=== PATIENT | female | born 1955 | race Caucasian/White ===

== ENCOUNTER 2024-12-04 13:36 | Emergency (ER) | payer MEDICARE, OTHER, SELFPAY ==
[2024-12-04] VITALS (18 sets, daily range): BP systolic 138–220; BP diastolic 78–110; PULSE 62–72; RESP 13–24; TEMP 35.2–35.5; O2SAT 98–100; BMI 30.7; BMI 36.1
[2024-12-04] MEDS: ETOMIDATE 40MG/20ML VIAL 30 MG IV (13:40)
[2024-12-04] MEDS: SUCCINYLCHOLINE 20MG/ML 10 ML MDV 50 MG IV (13:40)
--- NOTE | 2024-12-04 13:40 | CT_ITS ---
PROCEDURE INFORMATION: Exam: CT Head Without Contrast Exam date and time: 12/04/2024 1:55 PM Age: 69 years old Clinical indication: Stroke-like symptoms; Other: Unresponsive TECHNIQUE: Imaging protocol: Computed tomography of the head without contrast. Radiation optimization: All CT scans at this facility use at least one of these dose optimization techniques: automated exposure control; mA and/or kV adjustment per patient size (includes targeted exams where dose is matched to clinical indication); or iterative reconstruction. Other technique: STROKE PROTOCOL was implemented. COMPARISON: No relevant prior studies available. FINDINGS: Brain: Acute hemorrhage in the inferior right frontal lobe measures 6 x 1.8 x 2.8 cm. Focus of hemorrhage in the midline nga measures 1.2 x 0.7 x 1 cm. Hemorrhage is seen throughout the basal cisterns. Right subdural hematoma measures 9 mm. Subdural along the right midline falx measures 0.4 cm. [id number] midline shift measures 10 mm. Findings concerning for impending uncal herniation. Cerebral ventricles: Hemorrhage evident within the inferior 4th ventricle. No hydrocephalus. Paranasal sinuses: Visualized sinuses are unremarkable. No fluid levels. Mastoid air cells: Visualized mastoid air cells are well aerated. Bones: See Soft tissues finding. Soft tissues: Right supraorbital soft tissue edema. No depressed calvarial fracture. IMPRESSION: 1. Parenchymal and extra-axial hemorrhage as detailed above with extensive hemorrhage in the basal cisterns and involvement of the 4th ventricle. 2. 10 mm midline shift. 3. Findings concerning for impending uncal herniation. ASSESSMENT: ASPECTS ([place] Stroke Program Early CT Score) is not applicable. THIS REPORT CONTAINS FINDINGS THAT MAY BE CRITICAL TO PATIENT CARE. The findings were verbally communicated via telephone conference with Nurse Tracy Ellison at 2:13 PM EDT on 12/04/2024. The findings were acknowledged and understood.
[2024-12-04 13:43] LABS: Microscopic, Urine URINE MICROSCOPIC (MICROSCOPIC)
[2024-12-04 13:47] LABS: Appearance,Urine CLEAR (Clear); Bilirubin,Urine Negative (Negative); Blood, Urine TRACE-I (Negative); Color,Urine YELLOW (Yellow); Glucose,Urine (UA) TRACE (Negative); Ketones,Urine Negative (Negative); Leukocyte Esterase,Urine Negative (Negative); Nitrate,Urine Negative (Negative); PH,Urine 6.5 (5.0-8.5); Protein,Urine 2+ (Negative); Specific Gravity, Urine 1.025 (1.005-1.030); Urobilinogen,Urine 0.2 EU/dl (0.2)
--- NOTE | 2024-12-04 13:50 | ED_ITS ---
Discharge Plan Disposition Patient Disposition: Xfer Other Prescriptions Prescriptions: No Action pantoprazole 40 mg tablet,delayed release (DR/EC) 40 mg PO DAILY amlodipine-benazepril 10-40 mg capsule 1 cap PO DAILY albuterol sulfate 2.5 mg /3 mL (0.083 %) solution for nebulization 2.5 mg INHALATION Q6H Qty: 180 5RF buspirone 15 mg tablet 15 mg PO DAILY aspirin [Adult Low Dose Aspirin] 81 mg tablet,delayed release (DR/EC) 81 mg PO DAILY metoprolol succinate 200 mg tablet extended release 24 hr 200 mg PO DAILY Qty: 90 3RF (DME) blood-glucose meter Kit See Rx Instructions .ROUTE .MEDSUPPLY Qty: 1 0RF Rx Instructions: As directed (DME) lancets [Easy Touch Lancets] 28 gauge misc See Rx Instructions .ROUTE .MEDSUPPLY Qty: 100 0RF Rx Instructions: As directed (DME) blood sugar diagnostic [Blood Glucose Test] Strip See Rx Instructions .ROUTE .MEDSUPPLY Qty: 100 0RF Rx Instructions: once daily As directed alcohol swabs [BD Alcohol Swabs] Pads, Medicated 1 pad TOPICAL DAILY Qty: 100 0RF atorvastatin 20 mg tablet 20 mg PO DAILY Qty: 90 0RF Clinical Impressions Clinical Impression: Intracranial hemorrhage, Fall, Head injury Print Language Print Language: Macedonian Discharge ED Provider: Janet Mckeon General Adult HPI General Stated complaint: fall @ 10:00 now unresponsive Time Seen by Provider: 12/04/24 13:44 History of Present Illness HPI narrative: Patient is a 69-year-old female brought into the emergency department by EMS for being found unresponsive. There was an initial call to EMS this morning at 10 AM for a fall EMS responded patient was awake interactive with them and refused transport at that time. Apparently patient got increasingly confused and lost responsiveness about 12:20 PM at which point EMS was called again. She was somewhat responsive to EMS but has become increasingly unresponsive in route. She was hypertensive but otherwise stable. There is evidence that she has a frontal hematoma on the right side and the pupils were unequal prehospital. She is not on any anticoagulants from history or chart review she does take a daily aspirin but that it. Further history unable to be obtained attained. Related Data Home Medications ?Medication ?Instructions ?Recorded ?Confirmed amlodipine 10 mg-benazepril 40 mg 1 cap PO DAILY 02/01/20 02/01/20 capsule pantoprazole 40 mg tablet,delayed 40 mg PO DAILY 02/01/20 02/01/20 release aspirin 81 mg tablet,delayed 81 mg PO DAILY 03/06/20 03/06/20 release (Adult Low Dose Aspirin) buspirone 15 mg tablet 15 mg PO DAILY 03/06/20 Previous Rx's ?Medication ?Instructions ?Recorded albuterol sulfate 2.5 mg/3 mL 2.5 mg (3 mL) inhalation Q6H #180 02/01/20 (0.083 %) solution for nebulization mL alcohol swabs (BD Alcohol Swabs) 1 pad topical DAILY #100 ea 02/01/20 blood sugar diagnostic (Blood #100 ea 02/01/20 Glucose Test strips) blood-glucose meter #1 ea 02/01/20 lancets 28 gauge (Easy Touch #100 ea 02/01/20 Lancets) atorvastatin 20 mg tablet 20 mg PO DAILY #90 tabs 02/04/20 metoprolol succinate 200 mg 200 mg PO DAILY #90 tabs 03/06/20 tablet,extended release 24 hr Allergies Allergy/AdvReac Type Severity Reaction Status Date / Time codeine AdvReac Severe Vomiting Verified 03/06/20 11:42 trimethobenzamide (From AdvReac Severe Vomiting Verified 03/06/20 11:42 Tigan) [facility] Disclaimer: The information contained in this section may have been updated after the patient was seen, as this information can be updated by other users. Social History Smoking Status: Current every day smoker alcohol intake: never substance use type: marijuana current occupational status: retired and disabled Travel in the last 8 weeks: Inside the [place] Other Medical History Have you received the Pneumonia Vaccine: No ROS Obtained: Yes All systems reviewed & no additional complaints except as documented Physical Exam General General appearance: obtunded Head Head exam: other (Right frontal hematoma) Eye Eye exam: Present other (Right pupil 5 mm left 2 both responsive to light) Respiratory Respiratory exam: Present normal lung sounds bilaterally Cardiovascular Cardiovascular exam: Present regular rate Neurological Exam Neurological exam: Present other (Patient is obtunded has a GCS of 5 with an EVM of 113.) Medical Decision Making Medical Records Screening: Per USPSTF and CDC recommendations, given the prevalence of disease in our region, it is our hospital?s policy to screen for HIV and viral Hepatitis for all patients aged 18 and over and those with ongoing risk factors. Kyle Inquiry Pt receiving controlled substance: No Lab Data Lab Results 12/04/24 13:37: Urine Color Yellow, Urine Appearance Clear, Urine pH 6.5, Ur Specific [place] 1.025, Urine Protein 2+ A, Urine Glucose (UA) Trace, Urine Ketones Negative, Urine Blood Trace-i, Urine Nitrate Negative, Urine Bilirubin Negative, Urine Urobilinogen 0.2, Ur Leukocyte Esterase Negative Orders (Tests/Meds): ED MEDICATIONS Generic Name Dose Route Start Last Admin Trade Name Freq PRN Reason Stop Dose Admin Nicardipine HCl 25 mg/ Sodium 250 mls @ 50 mls/hr 12/04/24 14:00 Chloride IV 01/03/25 13:59 .Q5H ALEENA Protocol 5 MG/HR Propofol 100 mls @ 2.517 mls/hr 12/04/24 13:48 Diprivan 10mg/Ml 100ml Bottle IV 01/03/25 13:47 .Q24H ALEENA Protocol 5 MCG/KG/MIN Discontinued Medications Generic Name Dose Route Start Last Admin Trade Name Freq PRN Reason Stop Dose Admin Nicardipine HCl 25 mg/ Sodium 250 mls @ 50 mls/hr 12/04/24 13:48 Chloride IV 01/03/25 13:47 .Q5H ALEENA Protocol 5 MG/HR ORDERS Category Date Time Status CT head/brain wo con Stat Cat Scan 12/04/24 13:40 Taken CBC w/Auto Diff [Complete Blood Count Auto Diff] Stat Lab 12/04/24 13:48 Ordered CMP [Comprehensive Metabolic Panel] Stat Lab 12/04/24 13:48 Ordered PT/PTT Stat Lab 12/04/24 13:48 Ordered UA [Urinalysis and Microscopic] Stat Lab 12/04/24 13:37 Results Medical Decision Narrative: 69-year-old critically ill with presumed intracranial hemorrhage. Given whether helicopters or not flying EMS stopped our hospital with a concern for intracranial hemorrhage which I agree with. Patient recently fell was intermittently okay after the fall but has had increasing change in mental s tatus over the last several hours now has a GCS of 5. She was immediately intubated we are keeping her goal blood pressure at 220 with propofol and Cardene. To my knowledge she is not on any anticoagulants and reversal of anticoagulation is not being performed at the moment. Had a bed is at 30. She is going immediately to the noncontrasted CT scan in parallel with us trying to arrange transport to [facility]. Reassessment [address] Perez at [facility] transfer center who accepted the patient to the the [place] emergency department. In the meantime patient to return from CT scan where she got a noncontrasted CT scan and isolation while is on the phone with the transfer center I was able to quickly review and interpret this which shows a large right frontal intraparenchymal hemorrhage with associated traumatic subarachnoid hemorrhage clinically she is most likely herniating. Patient is not on any anticoagulants to our knowledge no reversal is being done at the moment. She is currently on a propofol drip and Cardene drip. Dr. Perez was going to speak with neurosurgery to get them a heads up that we are attempting to get the patient to transfer as quickly as possible. Unfortunately we have called 3 helicopter services and they are currently not flying. No family at the bedside at the moment but I will update them if they get here prior to her transfer. Patient remains in critical condition but unchanged clinically. Reassessment 211 I spoke with neurosurgery [facility] we will give 1/kg of mannitol in addition to 2000 mg of Keppra for seizure prophylaxis. Procedures Intubation Mallampati Score:: Class I Time out performed: Yes sedative: Etomidate Mg Given: 30 paralytic: Succinylcholine Mg Given: 150 Laryngoscope: Josse ET Tube Size: 7.5 ET Tube Uncuffed: Yes Tube Secured Depth (cm): 21 Tube Placement Confirmation: visualized tube passing through cords Patient Tolerated Procedure: well Intubation Complications: none Critical Care Critical Care Time Critical Care Time: Yes Attestation: On 12/04/24, the high probability of a clinically significant, sudden or life threatening deterioration of the following system(s) required my full and direct attention, intervention and personal management. The time I documented below is in addition to time spent performing reported procedures but includes the following listed in this critical care notation. Total Time Total Critical Care Time: 35
--- NOTE | 2024-12-04 13:54 | PC.NURSE ---
Pt arrived via EMS minimal responsive. 28f nasal trumpet to left nare with BVM in use. 16g IV to right AC, 20g to left hand. EMS pt fell at approximately 10am. C/O flu-like symptoms for 2 weeks per pt. EMS evaluated her at that time and pt refused transport and was A&Ox4. EMS later called out at approximately 12:20pm and pt was now unresponsive to verbal stimuli, unequal pupils, and having periods of apnea with snoring sounds. EMS POC glucose 250. BP 180's/90's per EMS in route. Dentures removed prior to intubation and placed in denture cup. 1332- Pt placed on non-rebreather 1338- Acharya inserted 1339- 20g IV to right forearm placed 1340- Etomidate 30mg IV and 50mg succinylcholine IV given 1342- 7.5 ett placed 24cm at the gum. Bilateral chest rise with breath sounds confirmed. 1344- BP-260/149 HR-89
[2024-12-04] MEDS: NICARDIPINE HCL 25 MG in 0.9 % SODIUM CHLORIDE 240 ML 50 MG IV (14:00)
--- NOTE | 2024-12-04 14:00 | PC.NURSE ---
CALLED [facility] FOR TRANSFER DUE TO TRAUMA PT HAVING FALL @ 10:00 AND BEING UNRESPONSIVELY AND IS NOT INTUBATED. IS NOT SPEAKING WITH TRAUMA DR FROM [facility] AT THIS TIME
--- NOTE | 2024-12-04 14:05 | PC.NURSE ---
PT WAS ACCEPTED TO [place] ED AT THIS TIME
--- NOTE | 2024-12-04 14:13 | PC.NURSE ---
DR SERRANO MADE AWARE OF CRITICAL FINDINGS OF HEAD CT, READ CT SCAN HIMSELF. NO NEW ORDERS AT THIS TIME
[2024-12-04 14:19] LABS: WBC,Urine 20-50 #/hpf (0-3)
[2024-12-04 14:20] LABS: Bacteria,Urine 4+ /lpf; Squamous Epithelial Cell,Urine 20-50 #/hpf (0-5)
--- NOTE | 2024-12-04 14:20 | ECG_ITS ---
APPROVED REPORT Exam: Resting ECG HR:64 bpm ECG Measurements Heart Rate 64 AXES PA 156 P 71 QRSd 95 QRS 2 QT 423 T 68 QTc 432 Conclusion SINUS RHYTHM WITH SINUS ARRHYTHMIA VOLTAGE CRITERIA FOR LVH [MEETS CRITERIA IN ONE OF: R(aVL), S(V1), R(V5), R(V5/V6)+S(V1)] NONSPECIFIC T-WAVE ABNORMALITY ABNORMAL ECG UNCONFIRMED REPORT Electronically signed by : RASHID BUTTERFIELD, 12/06/2024 03:48:38
--- NOTE | 2024-12-04 14:20 | PC.NURSE ---
CALL [employer] BACK TO SEE OF [place] WOULD POSSIBLE FLY DUE TO PT CRITICAL CONDITION
--- NOTE | 2024-12-04 14:21 | XR_ITS ---
PROCEDURE INFORMATION: Exam: XR Chest Exam date and time: 12/04/2024 2:24 PM Age: 69 years old Clinical indication: Device placement; Other: Og tube; Additional info: Ett & og tube placement TECHNIQUE: Imaging protocol: Radiologic exam of the chest. Views: 1 view. COMPARISON: No relevant prior studies available. FINDINGS: Tubes, catheters and devices: Endotracheal tube in the right mainstem bronchus. Recommend retraction approximately 4 cm. Nasogastric tube into the stomach. Lungs: Mild left basilar atelectasis. Pleural spaces: Unremarkable. No pleural effusion. No pneumothorax. Heart/Mediastinum: Unremarkable. No cardiomegaly. Bones/joints: Unremarkable. IMPRESSION: Endotracheal tube in the right mainstem bronchus. Recommend retraction approximately 4 cm.
--- NOTE | 2024-12-04 14:22 | PC.NURSE ---
CALLED [facility] TO SEE ABOUT CALLING IN AND EXTRA CREW TO TAKE PT TO [place] [facility] DUE TO PT CRITICAL STATUS, SANTO AT [facility] STATED NO OTHER TRUCK SHAKE FEEDER, OTHER TRUCK WAS ON SCENE AND HE STATED THEY SHOULD BE TO [facility] IN ETA 30- 4O MINUTES AND COULD TRANSPORT PT THEN
[2024-12-04] MEDS: levETIRAcetam 2,000 MG in 0.9 % SODIUM CHLORIDE 100 ML 240 MG IV (14:23)
--- NOTE | 2024-12-04 14:25 | PC.NURSE ---
[employer] TRIED TO HAVE 4 DIFFERENT AIR CRAFT TO FLY PT ALL DECLINED DUE TO WEATHER
[2024-12-04 14:49] LABS: Basophils # 0.1 K/mm3 (0-0.2); Basophils % 0.4 % (0.1-2.0); Eosinophils % 0.1 % (0.1-12.0); Hematocrit 45.6 % (37.0-47.0); Hemoglobin 15.1 g/dL (12.2-16.2); Lymphocytes # 1.8 K/mm3 (0.7-4.5); Lymphocytes % 6.2 % (10-50); Mean Corpuscular HGB Conc 33.1 g/dL (31.8-35.4); Mean Corpuscular Hemoglobin 29.9 pg (27.0-31.2); Mean Corpuscular Volume 90.3 fl (81-99); Mean Platelet Volume 9.1 fl (7.4-10.4); Monocytes % 3.5 % (1.7-9.3); Neutrophils # 25.1 K/mm3 (1.8-7.8); Neutrophils % 89.1 % (37.0-80.0); Nucleated Red Blood Cells # 0 10^3/uL; Nucleated Red Blood Cells % 0 %; Platelet Count 377 K/mm3 (142-424); Red Blood Count 5.05 M/mm3 (4.20-5.40); Red Cell Distribution Width 13.2 % (11.5-17.5); Red Cell Distribution Width-SD 43.7 fL; White Blood Count 28.2 K/mm3 (4.8-10.8)
[2024-12-04 14:53] LABS: Albumin Level 4.2 g/dl (3.5-5.0); Chloride 105 mmol/L (98-107); MANUAL DIFFERENTIAL MANUAL DIFFERENTIAL (MANUAL DIFF); Sodium 138 mmol/L (136-145)
[2024-12-04 14:56] LABS: Alanine Aminotransferase 24 U/L (12-78); Albumin/Globulin Ratio 1.1 (1.1-1.8); Alkaline Phosphatase 64 U/L (38-126); Aspartate Amino Transferase 43 U/L (14-36); Bilirubin,Total 0.8 mg/dl (0.2-1.3); Blood Urea Nitrogen 27 mg/dl (7-17); Carbon Dioxide 24 mmol/L (22.0-30.0); Creatinine Clearance Estimated 56 mL/min (50-200); Estimated Glomerular Filt Rate 41 ml/min (>60); GFR (African American) 49 ML/MIN (>60); Globulin 3.7 g/dL (1.3-3.2); Total Protein,Serum 7.9 g/dl (6.3-8.2)
[2024-12-04 14:57] LABS: Calcium 9.4 mg/dl (8.4-10.2); Glucose 192 mg/dl (74-100)
[2024-12-04 15:03] LABS: Activated Partial Thrombo Time 24.9 seconds (22.8-30.6); INR 0.88 (0.9-1.1)
[2024-12-04 15:16] LABS: Lymphocytes % 6 % (10-50); Monocytes % 1 % (2-9); Neutrophils % 93 % (42-76); Platelet Estimate Normal; RBC Morphology Normal; Total Cells Counted 100
[2024-12-04] MEDS: MANNITOL 800 ML IV (16:05)
[2024-12-04] MEDS: propofoL 100 ML 7 MG IV (16:09)
--- NOTE | 2024-12-04 16:17 | PC.NURSE ---
20 R AC 20 L AC
--- NOTE | 2024-12-06 11:51 | PC.NURSE ---
urine culture faxed to 5th floor [phone]
== END 2024-12-04 16:19 | disposition other institution (70) ==
PROVIDERS: Emergency Provider Student in an Organized Health Care Education/Training Program
DX: S06.340A Traumatic hemorrhage of right cerebrum without loss of consciousness, initial encounter (principal); S06.5X0A Traumatic subdural hemorrhage without loss of consciousness, initial encounter; H57.02 Anisocoria; W19.XXXA Unspecified fall, initial encounter
CPT/HCPCS: 31500; 70450; 71045; 80053; 81001; 85007; 85025; 85027; 85610; 85730; 87086; 87088; 87186; 93005; 96365; 96366; 96375; 99291; J0330; J1953; J2404; J2704